=== PATIENT | female | born 1970 | race Hispanic/Latino ===

== ENCOUNTER 2020-10-21 09:18 | Emergency (ER) | payer SELFPAY ==
[~2020-10-21] VITALS: Ht 167.6 cm; Wt 117.9 kg
[2020-10-21] MEDS ORDERED: KETOROLAC TROMETHAMINE 30 MG/ML VIAL IV STA (09:30)
[2020-10-21] MEDS ORDERED: SODIUM CHLORIDE 0.9% 1000ML 1,000 ML IV SCH ×2 (09:30→10:15)
[2020-10-21] MEDS ORDERED: ONDANSETRON HCL INJ 2MG/ML 2ML 2 MG/ML VIAL IV STA (09:30)
[2020-10-21] MEDS ORDERED: ONDANSETRON HCL INJ 2MG/ML 2ML 2 MG/ML VIAL ONE (09:38)
[2020-10-21] MEDS ORDERED: KETOROLAC TROMETHAMINE 30 MG/ML VIAL ONE (09:39)
[2020-10-21] MEDS ORDERED: SODIUM CHLORIDE 0.9% 1000ML 1,000 ML ONE ×2 (09:39→10:18)
[2020-10-21] MEDS ORDERED: DEXAMETHASONE SOD PHOS INJ 4 MG/ML VIAL ONE (09:39)
[2020-10-21] MEDS ORDERED: POTASSIUM CHLORIDE 20 MEQ TAB CR PO SCH (10:15)
[2020-10-21] MEDS ORDERED: POTASSIUM CHLORIDE 20 MEQ TAB CR PO ONE (10:19)
[2020-10-21] MEDS ORDERED: IBUPROFEN600 MG PO (10:49)
[2020-10-21] MEDS ORDERED: ONDANSETRON ODT4 MG PO (10:49)
[2020-10-21] MEDS ORDERED: POTASSIUM CHLO10 ME1 PO (10:49)
[2020-10-21 11:17] VITALS: BP 121/71
== END 2020-10-21 11:10 | disposition home or self-care (01) ==
LOC: FSED 10:03
DX: R50.9 Fever, unspecified (principal); J06.9 Acute upper respiratory infection, unspecified; R42 Dizziness and giddiness; R55 Syncope and collapse; E86.0 Dehydration
CPT/HCPCS: 71045; 80053; 82553; 84484; 85025; 93005; 96374; 96376; 99284; J1885; J2405; J7030; J1100